=== PATIENT | male | born 1970 ===

== ENCOUNTER 2024-04-15 12:04 | Inpatient (IN) | payer MEDICAID, OTHER ==
[2024-04-15] MEDS ORDERED: MAGNESIUM HYDROXIDE 2,400 MG/30 ML CUP PO PRN (16:36)
[2024-04-15] MEDS ORDERED: haloperidoL 5 MG TAB PO PRN (16:36)
[2024-04-15] MEDS ORDERED: HALOPERIDOL LACTATE 5 MG/ML 1 ML VIAL IM PRN (16:36)
[2024-04-15] MEDS ORDERED: MAG HYDROX/AL HYDROX/SIMETH 355 ML BOTTLE PO PRN (16:36)
[2024-04-15] MEDS ORDERED: LORazepam 2 MG/ML INJ IM PRN (16:36)
[2024-04-15] MEDS: ACETAMINOPHEN TAB 325 MG TAB PO PRN (22:53)
[2024-04-15] MEDS: traZODone HCL 50 MG TAB PO SCH (22:53)
[2024-04-15] MEDS: LORazepam 1 MG TAB PO PRN (22:58)
[2024-04-16] MEDS: amLODIPine 10 MG TAB PO SCH (09:18)
[2024-04-16] MEDS: PANTOPRAZOLE 40 MG TABLET PO SCH (09:18)
[2024-04-16] MEDS: hydroCHLOROthiazide 25 MG TAB PO SCH (09:18)
[2024-04-16] MEDS: NICOTINE 14MG/24HR PATCH TRANSDERM SCH (09:19)
[2024-04-16] MEDS: DULoxetine HCL 20 MG CAPSULE.DR PO SCH (09:38)
--- NOTE | 2024-04-16 12:12 | P.MDCNMH ---
History of Present Illness H&P Date: 04/16/24 History of present illness; patient is a 53-year-old gentleman past medical history significant for PTSD, depression, alcohol abuse, who was a direct admit to mental health unit from [facility] for suicidal ideations. Patient initially presented to [facility] with thoughts of hurting himself, patient to plan to suffocate himself with a bag. Patient is currently homeless and has been depressed for a number of days. Denies any auditory or visual destinations. Denies any homicidal thoughts. Patient was worked up in the ER and was deemed to be needing inpatient psych admission. REVIEW OF SYSTEMS: CONSTITUTIONAL: No fever, no malaise, no fatigue. HEENT: No recent visual problems or hearing problems. Denied any sore throat. CARDIOVASCULAR: No chest pain, orthopnea, PND, no palpitations, no syncope. PULMONARY: No shortness of breath, no cough, no hemoptysis. GASTROINTESTINAL: No diarrhea, no nausea, no vomiting, no abdominal pain. NEUROLOGICAL: No headaches, no weakness, no numbness. HEMATOLOGICAL: Denies any bleeding or petechiae. GENITOURINARY: Denies any burning micturition, frequency, or urgency. MUSCULOSKELETAL/RHEUMATOLOGICAL: Denies any joint pain, swelling, or any muscle pain. ENDOCRINE: Denies any polyuria or polydipsia. The rest of the 14-point review of systems is negative. PHYSICAL EXAMINATION: GENERAL: The patient is alert and oriented x3, not in any acute distress. Well developed, well nourished. HEENT: Pupils are round and equally reacting to light. EOMI. No scleral icterus. No conjunctival pallor. Normocephalic, atraumatic. No pharyngeal erythema. No thyromegaly. CARDIOVASCULAR: S1 and S2 present. No murmurs, rubs, or gallops. PULMONARY: Chest is clear to auscultation, no wheezing or crackles. ABDOMEN: Soft, nontender, nondistended, normoactive bowel sounds. No palpable organomegaly. MUSCULOSKELETAL: No joint swelling or deformity. EXTREMITIES: No cyanosis, clubbing, or pedal edema. NEUROLOGICAL: Gross neurological examination did not reveal any focal deficits. SKIN: Rash left buttock Assessment and plan Major depression Suicidal ideations PTSD Rash left buttock Hypertension GERD Monitor vital signs Elopement precaution Suicidal precautions Ordered nystatin cream for rash on left buttock Resume HCTZ and Norvasc for hypertension Continue psych meds per psychiatry team Labs and medication were reviewed.. Continue same treatment. Continue with symptomatic treatment. Resume home medication. Monitor labs and vitals. DVT and GI prophylaxis. Further recommendations as per clinical course of the patient Dictation was produced using Mint dictation software. please excuse any grammatical, word or spelling errors. Past Medical History Past Medical History: No Reported History History of Any Multi-Drug Resistant Organisms: None Reported Past Surgical History: No Surgical Hx Reported Past Anesthesia/Blood Transfusion Reactions: No Reported Reaction Past Psychological History: Depression, PTSD Smoking Status: Current every day smoker Past Alcohol Use History: Abuse Additional Past Alcohol Use History / Comment(s): Pt states he's an alcoholic who "quit drinking 3 weeks ago." Past Drug Use History: None Reported Medications and Allergies Home Medications Medication Instructions Recorded Confirmed Type DULoxetine HCL 20 mg PO DAILY 04/15/24 04/16/24 History Pantoprazole [Protonix] 40 mg PO DAILY 04/15/24 04/16/24 History amLODIPine [Norvasc] 10 mg PO DAILY 04/15/24 04/16/24 History hydroCHLOROthiazide 25 mg PO DAILY 04/15/24 04/16/24 History [Hydrochlorothiazide] traZODone HCL [Desyrel] 50 mg PO HS 04/15/24 04/16/24 History Allergies Allergy/AdvReac Type Severity Reaction Status Date / Time No Known Allergies Allergy Verified 04/15/24 16:32 Physical Exam Vitals: Vital Signs Temp Pulse Resp BP Pulse Ox 04/16/24 02:27 97.5 F L 95 14 126/96 97 Intake and Output 04/15/24 04/16/24 04/16/24 22:59 06:59 14:59 Other: Weight 80 kg 80 kg Cranial Nerve Examination - Cranial Nerves Cranial Nerve II- Optic: Intact (Cranial nerves II to XII intact) Cranial Nerve III- Oculomotor: Intact Cranial Nerve IV- Trochlear: Intact Cranial Nerve V- Trigeminal: Intact Cranial Nerve - Abducens: Intact Cranial Nerve VII- Facial: Intact Cranial Nerve VIII- Auditory: Intact Cranial Nerve IX- Glossopharyngeal: Intact Cranial Nerve X- Vagus: Intact Cranial Nerve XI- Accessory: Intact Cranial Nerve XII- Hypoglossal: Intact
--- NOTE | 2024-04-16 13:32 | P.HP ---
Psychiatric H&P - . H&P Date: 04/16/24 History & Physical: Allergies Allergy/AdvReac Type Severity Reaction Status Date / Time No Known Allergies Allergy Verified 04/15/24 16:32 Vital Signs Temp 97.5 F L 04/16/24 02:27 Pulse 95 04/16/24 02:27 Resp 14 04/16/24 02:27 BP 126/96 04/16/24 02:27 Pulse Ox 97 04/16/24 02:27 FiO2 Intake & Output 04/15/24 04/16/24 04/16/24 18:59 06:59 18:59 Weight 80 kg 80 kg Laboratory Last Values TSH 2.860 mIU/L (0.465-4.680) 04/16/24 09:58 04/16/24 13:25 This is a psychiatric assessment on Ronak is a 53-year-old male who presents with depression and suicidal ideations Patient was a poor historian and seems to be rushing through his complaints and symptoms Patient states that he has been hospitalized multiple times and that he has been homeless for a long period of time and that he is falling apart He states that he has been depressed and has multiple health problems he states that he feels overwhelmed and that he feels that he does not want to live anymo re Patient also admits that he has had problems with alcohol in the recent past Patient denies any actual suicide attempts he states that he was staying with a friend for a short period of time but for the most part has been homeless Past history personal social history Patient remains very superficial abrupt and seems to brush off any specific questions about his personal life patient in general states that he is currently under heavy stress due to his health in general and needs to be hospitalized Following is an excerpt from the assessment done in the ER which included here for completeness: patient is a 53-year-old gentleman past medical history significant for PTSD, depression, alcohol abuse, who was a direct admit to mental health unit from [facility] for suicidal ideations. Patient initially presented to [facility] with thoughts of hurting himself, patient to plan to suffocate himself with a bag. Patient is currently homeless and has been depressed for a number of days. Denies any auditory or visual destinations. Denies any homicidal thoughts. Patient was worked up in the ER and was deemed to be needing inpatient psych admission. Past Medical History Past Medical History: No Reported History History of Any Multi-Drug Resistant Organisms: None Reported Past Surgical History: No Surgical Hx Reported Past Anesthesia/Blood Transfusion Reactions: No Reported Reaction Past Psychological History: Depression, PTSD Smoking Status: Current every day smoker Past Alcohol Use History: Abuse Additional Past Alcohol Use History / Comment(s): Pt states he's an alcoholic who "quit drinking 3 weeks ago." Past Drug Use History: None Reported Mental status examination: MSE: Alert and attentive. Orientation times three Dressed and Groomed: Disheveled Superficial and brushing off on details, uninterested admits to feeling suicidal Psychomotor Activity: Normal. Speech: Normal in tone, quality, and quantity. Mood: Anxious. Affect: Consistent with mood. SI or HI: When he came in admits to feeling suicidal Perceptual disturbance: None. Thought Content: No perceptual disturbances noted appears to be frustrated. Thought Process: Goal directed sequential and logical Cognition: Intact Judgment and Insight: Poor Diagnosis: Adjustment disorder with mixed emotional features Major depressive disorder chronic with acute exacerbation Alcohol use disorder by history Plan and Recommendations: Continue current Medications. Monitor MS and side effects of medications and adjust medications accordingly. Provide supportive psychotherapy and psychoeducation. The patient provided Substance abuse counseling. Smoke cessation therapy. The patient to see a therapist on a regular basis once a week/ attend [facility]. Will continue his current home medications at this time Medication Consent with explanation of risk/benefits and side effects: Long Garcia MD Active Medications Generic Name Dose Route Start Last Admin Trade Name Freq PRN Reason Stop Dose Admin Acetaminophen 650 mg 04/15/24 16:36 04/15/24 22:53 Acetaminophen Tab 325 Mg Tab PO 650 mg Q4HR PRN Administration Mild Pain (Scale 1 to 3) Al Hydroxide/Mg Hydroxide 30 ml 04/15/24 16:36 Mag Hydrox/Al Hydrox/Simeth 355 Ml Bottle PO Q4HR PRN GI Upset Amlodipine Besylate 10 mg 04/16/24 09:00 04/16/24 09:18 Amlodipine 10 Mg Tab PO 10 mg DAILY ORIANA Administration Duloxetine HCl 20 mg 04/16/24 09:00 04/16/24 09:38 Duloxetine Hcl 20 Mg Capsule.Dr PO 20 mg DAILY ORIANA Administration Haloperidol 5 mg 04/15/24 16:36 Haloperidol 5 Mg Tab PO Q6H PRN Agitation Haloperidol Lactate 5 mg 04/15/24 16:36 Haloperidol Lactate 5 Mg/Ml 1 Ml Vial IM Q6HR PRN Severe Agitation Hydrochlorothiazide 25 mg 04/16/24 09:00 04/16/24 09:18 Hydrochlorothiazide 25 Mg Tab PO 25 mg DAILY ORIANA Administration Lorazepam 1 mg 04/15/24 16:36 04/15/24 22:58 Lorazepam 1 Mg Tab PO 1 mg Q6HR PRN Administration Anxiety Lorazepam 1 mg 04/15/24 16:36 Lorazepam 2 Mg/Ml Inj IM Q6HR PRN Severe Agitation Magnesium Hydroxide 2,400 mg 04/15/24 16:36 Magnesium Hydroxide 2,400 Mg/30 Ml Cup PO DAILY PRN Constipation Nystatin 1 applic 04/16/24 21:00 Nystatin 100,000unit/Gm Cream 30 Gm Tube TOPICAL BID [facility] Protocol Pantoprazole Sodium 40 mg 04/16/24 09:00 04/16/24 09:18 Pantoprazole 40 Mg Tablet PO 40 mg DAILY ORIANA Administration Trazodone HCl 50 mg 04/15/24 21:00 04/15/24 22:53 Trazodone Hcl 50 Mg Tab PO 50 mg HS ORIANA Administration
[2024-04-16] MEDS: NYSTATIN 100,000UNIT/GM CREAM 30 GM TUBE TOPICAL SCH (21:43)
--- NOTE | 2024-04-17 09:01 | P.PN ---
Subjective Progress Note Date: 04/17/24 Principal diagnosis: Diagnosis: Adjustment disorder with mixed emotional features Major depressive disorder chronic with acute exacerbation Alcohol use disorder by history Subjective data: The patient was seen in his room where he was laying comfortably Patient refused to answer any questions at this time until I called him by the name of Radames Patient then blew up about his father given me a lousy name and that he states that his father killed his 2-year-old brother when he was a baby Patient continues to ramble on and remains very angry projective and with flight of ideas Insight into his problem remains poor Mental status examination: MSE: Alert and attentive. Orientation times three Dressed and Groomed: Disheveled Superficial and brushing off on details, admits to feeling suicidal Psychomotor Activity: Normal. Speech: Normal in tone, quality, and quantity. Mood: Anxious. Affect: Consistent with mood. SI or HI: When he came in admits to feeling suicidal Perceptual disturbance: None. Thought Content: No perceptual disturbances noted appears to be frustrated. Thought Process: Goal directed sequential and logical Cognition: Intact Judgment and Insight: Poor Diagnosis: Adjustment disorder with mixed emotional features Major depressive disorder chronic with acute exacerbation Alcohol use disorder by history Plan and Recommendations: Continue current Medications. Monitor MS and side effects of medications and adjust medications accordingly. Provide supportive psychotherapy and psychoeducation. The patient provided Substance abuse counseling. Smoke cessation therapy. The patient to see a therapist on a regular basis once a week/ attend [facility]. Will continue his current home medications at this time Medication Consent with explanation of risk/benefits and side effects: Long Garcia MD Objective - Vital Signs Vital signs: Vital Signs Temp 97.5 F L 04/16/24 02:27 Pulse 95 04/16/24 02:27 Resp 14 04/16/24 02:27 BP 126/96 04/16/24 02:27 Pulse Ox 97 04/16/24 02:27 FiO2
--- NOTE | 2024-04-18 10:24 | P.PN ---
Progress Note - Text Progress Note Date: 04/18/24 Interval History: Patient was seen in his room, and was directable and agreeable to speak with abisai rincon in the office. Patient states that his life is worthless, and hopeless. He lost his job, and now can not pay his rent, so he is now homeless. He states that he got bit by ants, and he is in pain from this. He states that nothing is going to change, until his life changes. He does endorse suicidal thoughts, but no plan while on the unit. claims that if he was released then he would kill himself by hanging. he appeared to be fairly irritable during conversation. At this time patient denies homicidal ideations, intent or plan. Patient denies any auditory, visual hallucinations and denies any paranoia or delusions. Patient denies any side effects from the medications and has been compliant with meds. Mental Status Exam: General Appearance: [Patient appears to be older than stated age is alert, directable, and cooperative. Disheveled. Wearing a hospital gown. poor eye contact Behavior: [Patient is calmly seated without any agitated behavior. [place]. Speech: Patient's speech is fluent and nonpressured. Mood/Affect: Mood is improving mildly, affect is congruent and constricted. Suicidality/Homicidality: Patient endorses suicidal ideation, no homicidal ideation intent or plan. Perceptions: Patient denies any visual hallucinations [and denies any auditory hallucinations Though content/process: [There is no evidence of any delusional thought content and thought process is linear. [place] Memory and concentration: AOX3, grossly intact for the purposes of this session Judgment and insight: Improving mildly Assessment Major depressive disorder without psychotic features Alcohol use disorder by history homelessness Plan: -Patient continues to meet criteria for inpatient psychiatric admission for symptom stabilization and safety. Patient has signed [adult voluntary form and] [medication consent] and was placed in patient's chart. -Medications: d/c trazodone, add Seroquel 50mg po qhs for sleep, increase Cymbalta 20mg po bid for depression/anxiety, -When necessary Ativan and Haldol for agitation/aggression. -NRT - [nicotine patch] -SW on board for discharge planning. Encouraged the patient to participate in milieu.
[2024-04-18] MEDS ORDERED: traZODone HCL 100 MG TAB PO SCH (21:00)
[2024-04-18] MEDS: DULoxetine HCL 20 MG CAPSULE.DR PO SCH (22:05)
[2024-04-18] MEDS: QUEtiapine 50 MG TAB PO SCH (22:05)
[2024-04-19] MEDS: CEPHALEXIN 500 MG CAP PO SCH (10:48)
[2024-04-19] MEDS: DULoxetine HCL 30 MG CAPSULE.DR PO SCH (21:40)
--- NOTE | 2024-04-20 10:01 | P.PN ---
Progress Note - Text Progress Note Date: 04/19/24 Interval History: Patient was seen in his room, and was directable and agreeable to speak with abisai rincon in the office. Patient states that he is in a lot of pain from the ant bites on his buttocks. Cloth Printer looked at the wounds, which was not inflamed, but were red and irritated, and will prescribe antibiotics, patient agreeable. Patient states that his mood is the same, and he states that his life is a mess, and he does not want to live. He does endorse suicidal thoughts, but no plan while on the unit. Patient is less irritable today. He claims that he is sleeping well, and that his appetite is good. At this time patient denies homicidal ideations, intent or plan. Patient denies any auditory, visual hallucinations and denies any paranoia or delusions. Patient denies any side effects from the medications and has been compliant with meds. Mental Status Exam: General Appearance: Patient appears to be older than stated age is alert, directable, and cooperative. Disheveled. Wearing a hospital gown. poor eye contact Behavior: Patient is calmly seated without any agitated behavior. [place]. looking down during the entire interview. Speech: Patient's speech is fluent and nonpressured. Mood/Affect: Mood is depressed, affect is congruent and constricted. mildly improving Suicidality/Homicidality: Patient endorses suicidal ideation, no homicidal ideation intent or plan. Perceptions: Patient denies any visual hallucinations and denies any auditory hallucinations Though content/process: There is no evidence of any delusional thought content and thought process is linear. [place] Memory and concentration: AOX3, grossly intact for the purposes of this session Judgment and insight: Improving mildly Assessment Major depressive disorder without psychotic features Alcohol use disorder by history homelessness Plan: -Patient continues to meet criteria for inpatient psychiatric admission for symptom stabilization and safety. Patient has signed adult voluntary form and medication consent and was placed in patient's chart. -Medications: Seroquel 50mg po qhs for sleep, increase Cymbalta 30mg po bid for depression/anxiety, Keflex for 7 days for soft tissue infection. -When necessary Ativan and Haldol for agitation/aggression. -NRT - nicotine patch -SW on board for discharge planning. Encouraged the patient to participate in milieu. Likely discharge to a correction when patient is psychiatrically stable.
--- NOTE | 2024-04-20 10:32 | P.PN ---
Progress Note - Text Progress Note Date: 04/20/24 nterval History: Patient was seen in his room, and was directable and agreeable to speak with wr iter in the office. Patient states that he is still in pain, and he hopes the antibiotics work. He does state that his mood is mildly improving, and he states, "if I get out of here, and I have housing, everything will be alright". He is denying suicidal thoughts today, however, states that he is still depressed. Patient is less irritable. He claims that he is sleeping well, and that his appetite is good. continues to have poor eye contact mainly looking at the ground. At this time patient denies homicidal ideations, intent or plan. Patient denies any auditory, visual hallucinations and denies any paranoia or delusions. Patient denies any side effects from the medications and has been compliant with meds. Mental Status Exam: General Appearance: Patient appears to be older than stated age is alert, directable, and cooperative. Disheveled. Wearing a hospital gown. poor eye contact Behavior: Patient is calmly seated without any agitated behavior. [place]. looking down during the entire interview. Speech: Patient's speech is fluent and nonpressured. Mood/Affect: Mood is depressed, affect is congruent and constricted. mildly improving Suicidality/Homicidality: Patient denies suicidal ideation, no homicidal ideation intent or plan. Perceptions: Patient denies any visual hallucinations and denies any auditory hallucinations Though content/process: There is no evidence of any delusional thought content and thought process is linear. [place] Memory and concentration: AOX3, grossly intact for the purposes of this session Judgment and insight: Improving mildly Assessment Major depressive disorder without psychotic features Alcohol use disorder by history homelessness Plan: -Patient continues to meet criteria for inpatient psychiatric admission for symptom stabilization and safety. Patient has signed adult voluntary form and medication consent and was placed in patient's chart. -Medications: Seroquel 50mg po qhs for sleep, increase Cymbalta 30mg po daily + 60mg qhs for depression/anxiety, Keflex for 7 days for soft tissue infection. -When necessary Ativan and Haldol for agitation/aggression. -NRT - nicotine patch -SW on board for discharge planning. Encouraged the patient to participate in milieu. Likely discharge to a group home when patient is psychiatrically stable. possible discharge early next week if patient is improving psychiatrically.
[2024-04-20] MEDS: DULoxetine HCL 60 MG CAPSULE.DR PO SCH (21:42)
[2024-04-21] MEDS: DULoxetine HCL 30 MG CAPSULE.DR PO SCH (09:13)
--- NOTE | 2024-04-21 11:48 | P.PN ---
Progress Note - Text Progress Note Date: 04/21/24 Interval History: Patient was seen in his room, and was directable and agreeable to speak with abisai rincon in the office. Patient states that he is in pain still, but the ant bites are looking better. He stated that he hopes that his life improves. He states that he is pretty depressed, and so he sleeps all the time. He claims he has been depressed all of his life. He is denying suicidal thoughts today, however, states that he is still depressed and continues to have hopelessness and speak of his stressors. he continues to have passive thoughts of not wanting to "be around" however does not have a plan to harm self. Patient is less irritable. He claims that he is sleeping well, and that his appetite is good. Patient continues to be very concrete. At this time patient denies homicidal ideations, intent or plan. Patient denies any auditory, visual hallucinations and denies any paranoia or delusions. Patient denies any side effects from the medications and has been compliant with meds. Mental Status Exam: General Appearance: Patient appears to be older than stated age is alert, direc table, and cooperative. Disheveled. Wearing a hospital gown. poor eye contact, mildly improving Behavior: Patient is calmly seated without any agitated behavior. [place]. mildly improving eye contact Speech: Patient's speech is fluent and nonpressured. Mood/Affect: Mood is depressed, affect is congruent and constricted. mildly improving Suicidality/Homicidality: Patient denies suicidal ideation today, no homicidal ideation intent or plan. Perceptions: Patient denies any visual hallucinations and denies any auditory hallucinations Though content/process: There is no evidence of any delusional thought content and thought process is linear. [place] Memory and concentration: AOX3, grossly intact for the purposes of this session Judgment and insight: Improving mildly Assessment Major depressive disorder without psychotic features Alcohol use disorder by history homelessness Plan: -Patient continues to meet criteria for inpatient psychiatric admission for symptom stabilization and safety. Patient has signed adult voluntary form and medication consent and was placed in patient's chart. -Medications: Seroquel 50 mg po qhs for sleep, increase Cymbalta 60mg bid for depression/anxiety, will consider adding lithium for mood adjunct and suicidal thoughts if needed. Keflex for 7 days for soft tissue infection. -When necessary Ativan and Haldol for agitation/aggression. -NRT - nicotine patch -SW on board for discharge planning. Encouraged the patient to participate in milieu. Likely discharge to a group home when patient is psychiatrically stable. possible discharge early next week if patient is improving psychiatrically.
[2024-04-22] MEDS: DULoxetine HCL 60 MG CAPSULE.DR PO SCH (09:03)
--- NOTE | 2024-04-22 11:07 | P.PN ---
Progress Note - Text Progress Note Date: 04/22/24 Interval History: Patient was seen in his room, and was directable and agreeable to speak with abisai rincon in the office. Patient states he is ok today. He states that he did not sleep well last night, due to night vicente. He states that his mood is mildly improving. He is asking about senior care options, because he spoke with a co patient about one of the shelters. He stated that the co patient stated that they kick people out at 8:30, and that won't work for him, and if that happens, he will just be suicidal again. Patient is less irritable, more manipulative. He claims that his appetite is good. Patient continues to be very concrete. At this time patient denies homicidal ideations, intent or plan. Patient denies any auditory, visual hallucinations and denies any paranoia or delusions. Patient denies any side effects from the medications and has been compliant with meds. Mental Status Exam: General Appearance: Patient appears to be older than stated age is alert, directable, and cooperative. Disheveled. Wearing a hospital gown. poor eye contact, mildly improving Behavior: Patient is calmly seated without any agitated behavior. [place]. mildly improving eye contact Speech: Patient's speech is fluent and nonpressured. manipulative Mood/Affect: Mood is depressed, affect is congruent and constricted. mildly improving Suicidality/Homicidality: Patient denies suicidal ideation today, no homicidal ideation intent or plan. Perceptions: Patient denies any visual hallucinations and denies any auditory hallucinations Though content/process: There is no evidence of any delusional thought content and thought process is linear. [place] Memory and concentration: AOX3, grossly intact for the purposes of this session Judgment and insight: Improving mildly Assessment Major depressive disorder without psychotic features Alcohol use disorder by history homelessness Plan: -Patient continues to meet criteria for inpatient psychiatric admission for symptom stabilization and safety. Patient has signed adult voluntary form and medication consent and was placed in patient's chart. -Medications: Seroquel 50 mg po qhs for sleep, Cymbalta 60mg bid for depression/anxiety, will consider adding lithium for mood adjunct and suicidal thoughts if needed. Keflex for 7 days for soft tissue infection. -When necessary Ativan and Haldol for agitation/aggression. -NRT - nicotine patch -SW on board for discharge planning. Encouraged the patient to participate in milieu. Likely discharge to a senior care when patient is psychiatrically stable. possible discharge thursday if patient is improving psychiatrically.
[2024-04-22] MEDS ORDERED: DULoxetine HCL 60 MG CAPSULE.DR PO ONE (15:28)
--- NOTE | 2024-04-23 09:06 | P.PN ---
Subjective Progress Note Date: 04/23/24 Principal diagnosis: Diagnosis: Adjustment disorder with mixed emotional features Major depressive disorder chronic with acute exacerbation Alcohol use disorder by history Patient Name: Baldev Montero III Date of : 1970 Patient Status: Inpatient Attending Provider: Johnnie Haley Date: 04/23/24 Initialization Date: 04/22/24 08:57 Subjective data: Patient was seen and chart was reviewed and case discussed with nursing staff Patient was seen in his room, and was directable and agreeable to speak with conventional underwriter . Patient states he is doing better now . He states that he did sleep well last night, he reports that he is still trying to find a place for him Patient is less irritable, Patient remains overall a motivated for this assessment and gives flippant answers Mental Status Exam: General Appearance: Patient appears to be older than stated age is alert, directable, and limitedly cooperative. Disheveled. Wearing a hospital gown. poor eye contact, Behavior: Patient is calmly seated without any agitated behavior. [place]. mildly improving eye contact Speech: Patient's speech is fluent and nonpressured. manipulative Mood/Affect: Mood is depressed, affect is congruent and constricted. mildly improving Suicidality/Homicidality: Patient denies suicidal ideation today, no homicidal ideation intent or plan. Perceptions: Patient denies any visual hallucinations and denies any auditory hallucinations Though content/process: There is no evidence of any delusional thought content and thought process is linear. [place] Memory and concentration: AOX3, grossly intact for the purposes of this session Judgment and insight: Fair patient remains very manipulative Assessment Major depressive disorder without psychotic features Alcohol use disorder by history homelessness Plan: -Patient continues to meet criteria for inpatient psychiatric admission for symptom stabilization and safety. -Medications: Reviewed treatment plan Seroquel 50 mg po qhs for sleep, Cymbalta 60mg bid for depression/anxiety, lithium is also being considered for mood adjunct and suicidal thoughts if needed. Keflex for 7 days for soft tissue infection. -When necessary Ativan and Haldol for agitation/aggression. -NRT - nicotine patch -SW on board for discharge planning. Encouraged the patient to participate in milieu. Likely discharge to a senior care when patient is psychiatrically stable. possible discharge thursday if patient is improving psychiatrically. Long Garcia MD Active Medications Generic Name Dose Route Start Last Admin Trade Name Freq PRN Reason Stop Dose Admin Acetaminophen 650 mg 04/15/24 16:36 04/15/24 22:53 Acetaminophen Tab 325 Mg Tab PO 650 mg Q4HR PRN Administration Mild Pain (Scale 1 to 3) Al Hydroxide/Mg Hydroxide 30 ml 04/15/24 16:36 Mag Hydrox/Al Hydrox/Simeth 355 Ml Bottle PO Q4HR PRN GI Upset Amlodipine Besylate 10 mg 04/16/24 09:00 04/22/24 09:03 Amlodipine 10 Mg Tab PO 10 mg DAILY ORIANA Administration Cephalexin 500 mg 04/19/24 10:15 04/22/24 21:21 Cephalexin 500 Mg Cap PO 04/26/24 09:00 500 mg TID ORIANA Administration Protocol Duloxetine HCl 60 mg 04/20/24 21:00 04/22/24 21:21 Duloxetine Hcl 60 Mg Capsule. PO 60 mg HS ORIANA Administration Duloxetine HCl 60 mg 04/22/24 09:00 04/22/24 09:03 Duloxetine Hcl 60 Mg Capsule. PO 60 mg DAILY ORIANA Administration Haloperidol 5 mg 04/15/24 16:36 Haloperidol 5 Mg Tab PO Q6H PRN Agitation Haloperidol Lactate 5 mg 04/15/24 16:36 Haloperidol Lactate 5 Mg/Ml 1 Ml Vial IM Q6HR PRN Severe Agitation Hydrochlorothiazide 25 mg 04/16/24 09:00 04/22/24 09:03 Hydrochlorothiazide 25 Mg Tab PO 25 mg DAILY ORIANA Administration Lorazepam 1 mg 04/15/24 16:36 04/15/24 22:58 Lorazepam 1 Mg Tab PO 1 mg Q6HR PRN Administration Anxiety Lorazepam 1 mg 04/15/24 16:36 Lorazepam 2 Mg/Ml Inj IM Q6HR PRN Severe Agitation Magnesium Hydroxide 2,400 mg 04/15/24 16:36 Magnesium Hydroxide 2,400 Mg/30 Ml Cup PO DAILY PRN Constipation Nystatin 1 applic 04/16/24 21:00 04/22/24 21:21 Nystatin 100,000unit/Gm Cream 30 Gm Tube TOPICAL 1 applic BID ORIANA Administration Protocol Pantoprazole Sodium 40 mg 04/16/24 09:00 04/22/24 09:03 Pantoprazole 40 Mg Tablet PO 40 mg DAILY ORIANA Administration Quetiapine Fumarate 50 mg 04/18/24 21:00 04/22/24 21:21 Quetiapine 50 Mg Tab PO 50 mg HS ORIANA Administration Objective - Vital Signs Vital signs: Vital Signs Temp 97.9 F 04/22/24 06:35 Pulse 69 04/23/24 06:42 Resp 17 04/22/24 06:35 BP 112/77 04/23/24 06:42 Pulse Ox 99 04/22/24 06:35 FiO2
[2024-04-24 06:36] VITALS: RESP 18; TEMP 98.1
--- NOTE | 2024-04-24 09:01 | P.PN ---
Subjective Progress Note Date: 04/24/24 Principal diagnosis: Diagnosis: Adjustment disorder with mixed emotional features Major depressive disorder chronic with acute exacerbation Alcohol use disorder by history Patient Name: Baldev Montero III Date of : 1970 Patient Status: Inpatient Attending Provider: Johnnie Haley Date: 04/24/24 Initialization Date: 04/22/24 08:57 Subjective data: Patient was seen and chart was reviewed and case discussed with nursing staff Patient was seen in his room, and was directable and agreeable to speak with magnetic tape typewriter operator Patient seems somewhat irritable He states that he has some hip pain since he was attacked by the ants Thinking remains delusional and concrete Insight into his problem remains poor Maintains a sense of entitlement anger and projection Mental Status Exam: General Appearance: Patient appears to be older than stated age is alert, directable, and limitedly cooperative. Disheveled. Wearing a hospital gown. poor eye contact, Behavior: Patient is calmly seated without any agitated behavior. [place]. mildly improving eye contact Speech: Patient's speech is fluent and nonpressured. Mood/Affect: Mood is depressed, affect is congruent and constricted. mildly improving Suicidality/Homicidality: Patient denies suicidal ideation today, no homicidal ideation intent or plan. Perceptions: Patient denies any visual hallucinations and denies any auditory hallucinations Though content/process: There is evidence of delusional thought content ? or manipulation? Memory and concentration: AOX3, grossly intact for the purposes of this session Judgment and insight: Fair patient remains very manipulative Assessment Major depressive disorder without psychotic features Alcohol use disorder by history homelessness Plan: Patient reports that his hip hurts because he was attacked by the ants? -Patient continues to meet criteria for inpatient psychiatric admission for symptom stabilization and safety. -Medications: Reviewed treatment plan Seroquel 50 mg po qhs for sleep, Cymbalta 60mg bid for depression/anxiety, lithium is also being considered for mood adjunct and suicidal thoughts if needed. Keflex for 7 days for soft tissue infection. -When necessary Ativan and Haldol for agitation/aggression. -NRT - nicotine patch -SW on board for discharge planning. Encouraged the patient to participate in milieu. Likely discharge to a intermediate when patient is psychiatrically stable. possible discharge thursday if patient is improving psychiatrically. Long Garcia MD Active Medications Generic Name Dose Route Start Last Admin Trade Name Freq PRN Reason Stop Dose Admin Acetaminophen 650 mg 04/15/24 16:36 04/15/24 22:53 Acetaminophen Tab 325 Mg Tab PO 650 mg Q4HR PRN Administration Mild Pain (Scale 1 to 3) Al Hydroxide/Mg Hydroxide 30 ml 04/15/24 16:36 Mag Hydrox/Al Hydrox/Simeth 355 Ml Bottle PO Q4HR PRN GI Upset Amlodipine Besylate 10 mg 04/16/24 09:00 04/22/24 09:03 Amlodipine 10 Mg Tab PO 10 mg DAILY ORIANA Administration Cephalexin 500 mg 04/19/24 10:15 04/22/24 21:21 Cephalexin 500 Mg Cap PO 04/26/24 09:00 500 mg TID ORIANA Administration Protocol Duloxetine HCl 60 mg 04/20/24 21:00 04/22/24 21:21 Duloxetine Hcl 60 Mg Capsule. PO 60 mg HS ORIANA Administration Duloxetine HCl 60 mg 04/22/24 09:00 04/22/24 09:03 Duloxetine Hcl 60 Mg Capsule. PO 60 mg DAILY ORIANA Administration Haloperidol 5 mg 04/15/24 16:36 Haloperidol 5 Mg Tab PO Q6H PRN Agitation Haloperidol Lactate 5 mg 04/15/24 16:36 Haloperidol Lactate 5 Mg/Ml 1 Ml Vial IM Q6HR PRN Severe Agitation Hydrochlorothiazide 25 mg 04/16/24 09:00 04/22/24 09:03 Hydrochlorothiazide 25 Mg Tab PO 25 mg DAILY ORIANA Administration Lorazepam 1 mg 04/15/24 16:36 04/15/24 22:58 Lorazepam 1 Mg Tab PO 1 mg Q6HR PRN Administration Anxiety Lorazepam 1 mg 04/15/24 16:36 Lorazepam 2 Mg/Ml Inj IM Q6HR PRN Severe Agitation Magnesium Hydroxide 2,400 mg 04/15/24 16:36 Magnesium Hydroxide 2,400 Mg/30 Ml Cup PO DAILY PRN Constipation Nystatin 1 applic 04/16/24 21:00 04/22/24 21:21 Nystatin 100,000unit/Gm Cream 30 Gm Tube TOPICAL 1 applic BID ORIANA Administration Protocol Pantoprazole Sodium 40 mg 04/16/24 09:00 04/22/24 09:03 Pantoprazole 40 Mg Tablet PO 40 mg DAILY ORIANA Administration Quetiapine Fumarate 50 mg 04/18/24 21:00 04/22/24 21:21 Quetiapine 50 Mg Tab PO 50 mg HS ORIANA Administration Objective - Vital Signs Vital signs: Vital Signs Temp 98.1 F 04/24/24 06:35 Pulse 63 04/24/24 06:35 Resp 18 04/24/24 06:35 BP 114/74 04/24/24 06:35 Pulse Ox 99 04/24/24 06:35 FiO2
[2024-04-25 09:12] VITALS: BP 113/65; PULSE 105
--- NOTE | 2024-04-25 11:20 | P.DS ---
Providers Date of admission: 04/15/24 22:44 Expected date of discharge: 04/25/24 Attending physician: Johnnie Haley MD Consults: 04/15/24 16:36 Consult Physician Routine Consulting Provider: Marlyn Lindsey Consult Reason/Comments: H & P and medical care Do you want consulting provider notified?: Yes Primary care physician: Long Garcia MD - Discharge Diagnosis(es) (1) Major depressive disorder without psychotic features Current Visit: Yes Status: Acute Priority: High (2) Alcohol use disorder Current Visit: Yes Status: Acute Priority: High (3) Homelessness Current Visit: Yes Status: Acute Priority: Low Hospital Course: Admission HPI: Admission note was completed by Dr Garcia "this is a psychiatric assessment on Ronak is a 53-year-old male who presents with depression and suicidal ideations Patient was a poor historian and seems to be rushing through his complaints and symptoms Patient states that he has been hospitalized multiple times and that he has been homeless for a long period of time and that he is falling apart He states that he has been depressed and has multiple health problems he states that he feels overwhelmed and that he feels that he does not want to live anymore Patient also admits that he has had problems with alcohol in the recent past Patient denies any actual suicide attempts he states that he was staying with a friend for a short period of time but for the most part has been homeless" Hospital course: Upon admission to the unit patient was directable and agreeable to commence treatment and signed adult voluntary form. Patient was fairly isolative and kept to himself in his room throughout the majority of the hospitalization however with time and treatment he eventually got along well with other patients on the unit and followed unit protocol. Patient was compliant with the medications and denied any side effects throughout hospital course. Patient was started on Cymbalta increased to dose of 60 mg twice daily for mood/anxiety/pain, Seroquel 50 mg nightly for sleep/mood stabilization/mood adjunct, patient was also treated with p.o. antibiotics Keflex for soft tissue infection. Patient spoke of his stressors however did not participate in groups or therapy. Patient was also seen by medical team for history and physical exam. Throughout the course of the hospitalization patient gradually improved with regards to mood, anxiety, suicidal thoughts, sleep and returned back to their baseline level of functioning. On the day of discharge patient denied any suicidal or homicidal ideations intent or plan denied any auditory or visual hallucinations. Patient endorsed wanting to live for his future and to find a home. The patient denied any access to guns or weapons. Patient denied any paranoia and did not endorse any delusions. Patient does have a significant history of substance abuse and was counseled on abstaining from all substances including alcohol and marijuana. Patient elected to do outpatient substance use treatment program through [facility]. Patient was also counseled on the medications and need for regular compliance and was encouraged to follow-up with their outpatient appointment for mental health and also for primary care. reinforcing metal worker will assist patient today with group home referral and also transportation. Mental status exam: General Appearance: Patient appears to be thin, bald, stated age is alert, pleasant, and p superficially cooperative. Patient is in no acute distress and has improved hygiene and grooming. Continues to have poor eye contact Behavior: Patient is calmly seated without any agitated behavior. Speech: Patient's speech is fluent and nonpressured. Mood/Affect: Patient reports their mood is "fine", affect is congruent Suicidality/Homicidality: Patient denies having any suicidal or homicidal ideation intent or plan. Perceptions: Patient denies any auditory or visual hallucinations. Though content/process: There is no evidence of any delusional thought content and thought process is linear and goal-directed. More future oriented, manipulative Memory and concentration: AOX3, grossly intact for the purposes of this session. Can spell "WORLD" backwards correctly. Judgment and insight: Chronically poor and manipulative, however has improved with guarded prognosis Impression: Major depressive disorder without psychotic features Alcohol use disorder by history homelessness Plan: -Continue with discharge today as patient has improved and stabilized psychiatrically and is not currently an imminent threat to himself and/or others. Patient will remain at chronically elevated risk for harm to self and/or others due to his impulsivity. -Continue medications: Seroquel 50 mg nightly for sleep/mood adjunct/mood stabilization, Cymbalta 60 mg twice daily for mood/anxiety/pain. Patient will finish out antibiotics for 2 more days then discontinue for soft tissue infection. -Patient was counseled on the need for medication compliance and appropriate follow-up at mental health and also primary care for medical issues. Patient verbalized understanding and agreed. -Social work to help coordinate patient's discharge today, he will be referred to [facility]. social work also to arrange for patients follow up appointments with [facility] for psychiatric care along with follow up with primary care provider. -Patient counseled on abstaining from recreational drugs and marijuana and alcohol. Was informed/educated on the adverse effects on their physical and mental health. Patient verbally agreed and understood. Patient was offered substance abuse treatment however declined at this time. -Patient was instructed to return to the hospital or seek immediate medical care if their psychiatric or medical symptoms do worsen or reoccur. ] Allergies Allergy/AdvReac Type Severity Reaction Status Date / Time No Known Allergies Allergy Verified 04/15/24 16:32 Laboratory Results TSH 2.860 mIU/L (0.465-4.680) 04/16/24 09:58 Vital Signs Temp 98.1 F 04/24/24 06:35 Pulse 105 H 04/25/24 09:12 Resp 18 04/24/24 09:44 BP 113/65 04/25/24 09:12 Pulse Ox 99 04/24/24 06:35 FiO2 Intake & Output 04/24/24 04/25/24 04/25/24 18:59 06:59 18:59 Weight 78.2 kg Patient Condition at Discharge: Stable Plan - Discharge Summary Discharge Rx Participant: Yes New Discharge Prescriptions: New DULoxetine HCL [Cymbalta] 60 mg PO BID 30 Days #60 cap Cephalexin [Keflex] 500 mg PO TID 2 Days #6 cap Nystatin 100,000Unit/gm Cream [Mycostatin Cream] 1 applic TOPICAL BID #1 each QUEtiapine [SEROquel] 50 mg PO HS 30 Days #30 tab Continue hydroCHLOROthiazide 25 mg PO DAILY 30 Days #30 tab Pantoprazole [Protonix] 40 mg PO DAILY 30 Days #30 tab amLODIPine [Norvasc] 10 mg PO DAILY 30 Days #30 tab Discontinued DULoxetine HCL 20 mg PO DAILY traZODone HCL [Desyrel] 50 mg PO HS Discharge Medication List Cephalexin [Keflex] 500 mg PO TID 2 Days #6 cap 04/25/24 [Rx] DULoxetine HCL [Cymbalta] 60 mg PO BID 30 Days #60 cap 04/25/24 [Rx] Nystatin 100,000Unit/gm Cream [Mycostatin Cream] 1 applic TOPICAL BID #1 each 04/25/24 [Rx] Pantoprazole [Protonix] 40 mg PO DAILY 30 Days #30 tab 04/25/24 [Rx] QUEtiapine [SEROquel] 50 mg PO HS 30 Days #30 tab 04/25/24 [Rx] amLODIPine [Norvasc] 10 mg PO DAILY 30 Days #30 tab 04/25/24 [Rx] hydroCHLOROthiazide 25 mg PO DAILY 30 Days #30 tab 04/25/24 [Rx] Follow up Appointment(s)/Referral(s): [facility], [facility] [Other] - 1 Week Activity/Diet/Wound Care/Special Instructions: Avoid the use of street drugs and alcohol. Take all medications as prescribed. When you are in need of refills on your medications, please contact your medical provider and/or outpatient psychiatrist/provider to have this done. Please go to your scheduled outpatient appointment for aftercare treatment. If symptoms return or become worse, call the crisis line at and/or go to the nearest emergency room for evaluation. National Suicide Hotline 764 Discharge Disposition: OTHER INSTITUTION NOT DEFINED
== END 2024-04-25 13:47 | disposition home or self-care (01) | DRG 754 ==
LOC: 3MHU 22:44
PROVIDERS: ADMIT Psychiatry & Neurology Psychiatry; ATTEND Psychiatry & Neurology Psychiatry
DX: F32.9 Major depressive disorder, single episode, unspecified (principal); F43.10 Post-traumatic stress disorder, unspecified; I10 Essential (primary) hypertension; K21.9 Gastro-esophageal reflux disease without esophagitis; F10.10 Alcohol abuse, uncomplicated; F17.200 Nicotine dependence, unspecified, uncomplicated; Z71.41 Alcohol abuse counseling and surveillance of alcoholic; Z71.6 Tobacco abuse counseling; F41.9 Anxiety disorder, unspecified; K59.00 Constipation, unspecified; L08.9 Local infection of the skin and subcutaneous tissue, unspecified; R45.851 Suicidal ideations; Z56.0 Unemployment, unspecified; Z59.00 Homelessness unspecified; Z79.899 Other long term (current) drug therapy; Z28.21 Immunization not carried out because of patient refusal
CPT/HCPCS: 84443